=== PATIENT | male | born 1975 | race Caucasian/White ===

== ENCOUNTER 2021-02-07 22:41 | Emergency (ER) | payer SELFPAY ==
[2021-02-08] MEDS ORDERED: HYDROCODON-ACE1 EAC2 PO (00:47)
== END 2021-02-08 01:08 | disposition home or self-care (01) ==
LOC: FER 22:41
DX: S62.525A Nondisplaced fracture of distal phalanx of left thumb, initial encounter for closed fracture (principal); W22.8XXA Striking against or struck by other objects, initial encounter
CPT/HCPCS: 73140